=== PATIENT | female | born 1970 | race American Indian/Alaskan Native ===

== ENCOUNTER 2019-05-08 07:04 | Emergency (ER) | payer OTHER ==
[2019-05-08 07:10] VITALS: BP 113/68
[2019-05-08 07:51] LABS: Bilirubin,Urine NEG (Negative); Blood,Urine NEG (Negative); Color,Urine Yellow (Yellow); Mucus,Urine 3+ /HPF; Protein,Urine <15 mg/dL mg/dL (Negative); WBC,Urine < 1.0 /HPF (0.0-6.0)
[2019-05-08 07:54] LABS: HCG Qualitative,Urine Negative (Negative)
--- NOTE | 2019-05-08 07:59 | Emergency Department Report ---
ED General Adult HPI - General Chief complaint: Extremity Injury, Lower Stated complaint: SWOLLEN FEET Time Seen by Provider: 05/08/19 07:55 Source: patient Mode of arrival: Ambulatory Limitations: No Limitations - History of Present Illness Initial comments: 48-year-old -[place] female presents to the emergency room for swelling to both feet since yesterday. Patient reports they drove here from [place] on 04/05/2019. Patient denies any pain no shortness of breath no chest pain. Patient states that she may be . Patient also reports that she is homeless and has been sleeping in her cough for the last month and has been eating carryout food. Patient denies any past medical history currently takes no medications on a daily basis and has no known drug allergies. Onset/Timin -: days(s) Location: lower extremity Severity scale (0 -10): 0 Associated Symptoms: denies: chest pain, cough, diaphoresis, shortness of breath Treatments Prior to Arrival: none - Related Data Allergies Allergy/AdvReac Type Severity Reaction Status Date / Time No Known Allergies Allergy Unverified 05/08/19 07:06 ED Review of Systems ROS: Stated complaint: SWOLLEN FEET Other details as noted in HPI Comment: All other systems reviewed and negative ED Past Medical Hx - Past Medical History Previous Medical History?: No - Surgical History Past Surgical History?: No - Social History Smoking Status: Never Smoker Substance Use Type: None ED Physical Exam - General Limitations: No Limitations General appearance: alert, in no apparent distress - Head Head exam: Present: atraumatic, normocephalic - Eye Eye exam: Present: normal appearance, PERRL - ENT ENT exam: Present: normal exam, mucous membranes moist - Neck Neck exam: Present: normal inspection, full ROM - Respiratory Respiratory exam: Present: normal lung sounds bilaterally. Absent: respiratory distress - Cardiovascular Cardiovascular Exam: Present: regular rate, normal rhythm. Absent: systolic murmur, diastolic murmur, rubs, gallop - GI/Abdominal GI/Abdominal exam: Present: soft, normal bowel sounds - Extremities Exam Extremities exam: Present: full ROM, pedal edema (nonpitting). Absent: tenderness, calf tenderness - Back Exam Back exam: Present: normal inspection, full ROM - Neurological Exam Neurological exam: Present: alert, oriented X3 - Psychiatric Psychiatric exam: Present: normal affect, normal mood - Skin Skin exam: Present: warm, dry, intact, normal color. Absent: rash ED Course Vital Signs 05/08/19 07:06 Temperature 98.4 F Pulse Rate 80 Respiratory 16 Rate Blood Pressure 113/68 O2 Sat by Pulse 100 Oximetry ED Medical Decision Making - Medical Decision Making 48-year-old -[place] female with no past medical history comes in for swelling to both feet since yesterday. Patient has nonpitting edema no shortness of breath or chest pain. Discussed the patient is most likely due to her situation of eating high sodium foods and sleeping in her car which causes her feet to dangle. Discussed the patient if she has any shortness of breath and chest pain or worsening of her swelling lower extremities to please return back to the emergency room. Patient verbalized understanding. Critical care attestation.: If time is entered above; I have spent that time in minutes in the direct care of this critically ill patient, excluding procedure time. ED Disposition Clinical Impression: Lower extremity edema Disposition: DC-01 TO HOME OR SELFCARE Is pt being admited?: No Does the pt Need Aspirin: No Condition: Stable Additional Instructions: Please try to avoid high sodium foods. Please elevate feet above heart at night. Please return back to the emergency room if there is any worsening of her swelling shortness of breath chest pain. Referrals: [facility] [Provider Group] - 3-5 Days
== END 2019-05-08 08:08 | disposition home or self-care (01) ==
LOC: ED 07:04
DX: R60.0 Localized edema (principal)
CPT/HCPCS: 81001; 81025; 99283

== ENCOUNTER 2019-11-19 09:20 | Emergency (ER) | payer SELFPAY ==
[2019-11-19 09:38] VITALS: BP 111/63
== END 2019-11-19 10:01 | disposition left against medical advice (07) ==
LOC: ED 09:20
DX: R21 Rash and other nonspecific skin eruption (principal); Z53.21 Procedure and treatment not carried out due to patient leaving prior to being seen by health care provider

== ENCOUNTER 2021-02-07 14:56 | Emergency (ER) | payer OTHER ==
[2021-02-07 15:25] VITALS: BP 112/74
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
--- NOTE | 2021-02-07 16:48 | XRay Report ---
CLINICAL DATA: MAIN TECHNICAL DATA: AP internal, AP external, and Y views were obtained of the shoulder. FINDINGS: There is no acute fracture. The glenoid fossa humeral head articulation is normal. There is no acromi oclavicular joint widening or offset. The coracoclavicular distance is normal. There are no significa nt degenerative changes. IMPRESSION: No acute radiographic abnormality. Signer Name: Lee Jaimes MD Signed: 02/07/2021 4:44 PM Workstation Name: [id number]
--- NOTE | 2021-02-07 16:48 | XRay Report ---
CLINICAL DATA: MAIN TECHNICAL DATA: AP and lateral views were obtained of the tibia and fibula. FINDINGS: The soft tissues are normal. There is no acute fracture or dislocation. The visualized joint spaces are normal. IMPRESSION: No acute radiographic abnormality. Signer Name: Lee Jaimes MD Signed: 02/07/2021 4:43 PM Workstation Name: [id number]
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
== END 2021-02-07 18:37 | disposition left against medical advice (07) ==
LOC: ED 14:56
DX: M54.2 Cervicalgia (principal); Z53.21 Procedure and treatment not carried out due to patient leaving prior to being seen by health care provider
CPT/HCPCS: 36415; 84703